=== PATIENT | male | born 1960 | race American Indian/Alaskan Native ===

== ENCOUNTER 2018-06-25 13:57 | Outpatient (CLI) | payer MEDICAID, SELFPAY ==
[2018-06-26 09:27] LABS: PSA, Screening 2.4 ng/ml (0-3.5)
== END 2018-06-25 14:17 ==
PROVIDERS: PCP Family Medicine; Visit Provider Nurse Practitioner Gerontology
DX: Z12.5 Encounter for screening for malignant neoplasm of prostate (principal); Z80.42 Family history of malignant neoplasm of prostate
CPT/HCPCS: 36415; 84153